=== PATIENT | female | born 1975 | race Hispanic/Latino ===

== ENCOUNTER 2023-12-31 21:51 | Inpatient (IN) | payer SELFPAY ==
[~2023-12-31] VITALS: Ht 157.5 cm; Wt 75.3 kg
[~2023-12-31 21:51] MED LIST: FIORIT PO; LEVO-70 PO; TOPI25TA42 PO
[2023-12-31 22:10] LABS: APPEARANCE,URINE CLEAR (CLEAR); BILIRUBIN,URINE NEGATIVE (NEGATIVE); COLOR,URINE LIGHT-YELLOW (YELLOW); GLUCOSE, URINE (UA) NEGATIVE (NEGATIVE); KETONES,URINE NEGATIVE (NEGATIVE); LEUKOCYTE ESTERASE ,URINE 500 Leu/uL (NEGATIVE); NITRATE,URINE NEGATIVE (NEGATIVE); OCCULT BLOOD,URINE SMALL (NEGATIVE); PH,URINE 5.5 (5.0-8.0); PROTEIN,URINE 20 mg/dL (NEGATIVE); UROBILINOGEN,URINE 0.2 mg/dL (0.2-1.0)
[2023-12-31 22:12] LABS: ADD UA MICROSCOPIC YES
[2023-12-31 22:15] LABS: BACTERIA,URINE RARE /HPF (None Seen); MUCUS,URINE RARE LPF (None Seen); SQUAMOUS EPITHELIAL CELL,UR RARE /HPF (0-2); WBC,URINE 51-100 /HPF (0-1)
[2023-12-31] MEDS: ketOROlac 30MG VIAL (30MG/ML) IVP ONE (22:20)
[2023-12-31] MEDS: 0.9%NACL 1000ML 2,340 ML IV ONE (22:20)
[2023-12-31] MEDS: ondanSETRON 4MG INJ IVP ONE (22:20)
[2023-12-31] MEDS: acetaMINOPHEN 500 MG TABLET PO ONE (22:21)
[2023-12-31] MEDS: CEFTRIAXONE 2GM VIAL IVPB ONE (22:21)
[2023-12-31] MEDS: morPHINE 4 MG SYG IVP ONE (22:21)
[2023-12-31 22:22] LABS: BASOPHILS # (AUTO) 0.05 K/uL (0.00-0.20); BASOPHILS % (AUTO) 0.4 % (0.0-5.0); EOSINOPHILS # (AUTO) 0.08 K/uL (0.00-0.70); EOSINOPHILS % (AUTO) 0.7 % (0.0-8.0); HEMATOCRIT 38.4 % (36-48); IMMATURE GRANULOCYTE ABSOLUTE 0.05 K/uL (0-1); LYMPHOCYTES # (AUTO) 1.9 K/uL (1.0-4.8); LYMPHOCYTES % (AUTO) 17.2 % (21.0-51.0); MEAN CORPUSCULAR HEMOGLOBIN 29.9 pg (27.0-33.0); MEAN CORPUSCULAR HGB CONC 33.9 g/dL (32.0-36.0); MEAN CORPUSCULAR VOLUME 88.3 fL (79-99); MONOCYTES # (AUTO) 0.9 K/uL (0.1-1.0); NEUTROPHILS # (AUTO) 8.2 K/uL (1.8-7.7); NEUTROPHILS % (AUTO) 73.3 % (40.0-77.0); PLATELET COUNT (AUTO) 295 K/uL (130-400); RED BLOOD CELL COUNT(AUTO) 4.35 MIL/uL (4.00-5.50); RED CELL DISTRIBUTION WIDTH 12.5 % (11.0-15.5); WHITE BLOOD COUNT (AUTO) 11.2 K/uL (4.8-10.8)
[2023-12-31 22:35] LABS: POTASSIUM 3.4 mmol/L (3.5-5.1)
[2023-12-31 22:40] LABS: ALBUMIN 3.3 g/dL (3.5-5.0); BILIRUBIN,DIRECT 0.1 mg/dL (0.0-0.3); BILIRUBIN,TOTAL 0.4 mg/dL (0.2-1.0); TOTAL PROTEIN, SERUM 7.5 g/dL (6.0-8.3)
[2024-01-01] VITALS (9 sets, daily range): BP systolic 118–150; BP diastolic 72–92; PULSE 73–115; RESP 16–20; TEMP 97.5–100.1; O2SAT 97–98
[2024-01-01] MEDS: PoTASSium BIcarbonate/CIT AC 25 MEQ TABLET.EFF PO ONE (00:34)
[2024-01-01] MEDS: morPHINE 4 MG SYG IVP ONE (00:34)
[2024-01-01] MEDS ORDERED: HYDROcodone/APAP 5/325 1 TAB TABLET PO PRN (01:00)
[2024-01-01] MEDS ORDERED: ondanSETRON 4MG INJ IVP PRN (01:00)
[2024-01-01] MEDS: LACTATED RINGERS 1000ML 1,000 ML IV SCH (01:06)
[2024-01-01] MEDS ORDERED: LOSA100T59 PO (02:48)
[2024-01-01] MEDS: morPHINE 2 MG SYG IVP PRN (05:14)
[2024-01-01] MEDS: ZOSYN 3.375GM+NS 50ML 50 ML IV SCH (05:14)
[2024-01-01 05:57] LABS: BASOPHILS # (AUTO) 0.04 K/uL (0.00-0.20); BASOPHILS % (AUTO) 0.5 % (0.0-5.0); EOSINOPHILS # (AUTO) 0.11 K/uL (0.00-0.70); EOSINOPHILS % (AUTO) 1.2 % (0.0-8.0); HEMATOCRIT 35.2 % (36-48); IMMATURE GRANULOCYTE ABSOLUTE 0.03 K/uL (0-1); LYMPHOCYTES # (AUTO) 2.2 K/uL (1.0-4.8); LYMPHOCYTES % (AUTO) 25.2 % (21.0-51.0); MEAN CORPUSCULAR HEMOGLOBIN 30.1 pg (27.0-33.0); MEAN CORPUSCULAR HGB CONC 33.5 g/dL (32.0-36.0); MEAN CORPUSCULAR VOLUME 89.8 fL (79-99); MONOCYTES # (AUTO) 0.9 K/uL (0.1-1.0); MONOCYTES % (AUTO) 9.7 % (3.0-13.0); NEUTROPHILS # (AUTO) 5.6 K/uL (1.8-7.7); NEUTROPHILS % (AUTO) 63.1 % (40.0-77.0); PLATELET COUNT (AUTO) 239 K/uL (130-400); RED BLOOD CELL COUNT(AUTO) 3.92 MIL/uL (4.00-5.50); RED CELL DISTRIBUTION WIDTH 12.6 % (11.0-15.5); WHITE BLOOD COUNT (AUTO) 8.9 K/uL (4.8-10.8)
[2024-01-01 06:18] LABS: CREATININE 0.8 mg/dL (0.5-1.0); MAGNESIUM 1.9 mg/dL (1.80-2.40)
[2024-01-01] MEDS: PHENAZOpyridine HCL 200 MG TAB 200 MG TABLET PO PRN (15:15)
[2024-01-01] MEDS: cefTRIAXone 1G VIAL IVPB SCH (15:15)
[2024-01-01] MEDS: ketOROlac 15MG/ML VIAL (15MG/ML) IV ONE (15:46)
[2024-01-01] MEDS: hydroMORPHone 1 MG INJ IVP ONE (23:26)
[2024-01-02] MEDS: acetaMINOPHEN 325 MG TAB PO PRN (03:07)
[2024-01-02 04:15] VITALS: BP 109/70; PULSE 87; RESP 18; TEMP 97.8
[2024-01-02 06:42] LABS: ALBUMIN 2.3 g/dL (3.5-5.0); BILIRUBIN,TOTAL 0.4 mg/dL (0.2-1.0); CREATININE 0.9 mg/dL (0.5-1.0); MAGNESIUM 1.8 mg/dL (1.80-2.40); POTASSIUM 3.8 mmol/L (3.5-5.1); TOTAL PROTEIN, SERUM 5.9 g/dL (6.0-8.3)
[2024-01-02 08:00] VITALS: BP 98/65; PULSE 75; RESP 16; TEMP 97.5; O2SAT 97
[2024-01-02 09:22] LABS: BASOPHILS # (AUTO) 0.04 K/uL (0.00-0.20); BASOPHILS % (AUTO) 0.6 % (0.0-5.0); EOSINOPHILS # (AUTO) 0.13 K/uL (0.00-0.70); EOSINOPHILS % (AUTO) 1.8 % (0.0-8.0); HEMATOCRIT 32.6 % (36-48); IMMATURE GRANULOCYTE ABSOLUTE 0.02 K/uL (0-1); LYMPHOCYTES # (AUTO) 2.1 K/uL (1.0-4.8); LYMPHOCYTES % (AUTO) 28.8 % (21.0-51.0); MEAN CORPUSCULAR HEMOGLOBIN 29.9 pg (27.0-33.0); MEAN CORPUSCULAR HGB CONC 32.5 g/dL (32.0-36.0); MEAN CORPUSCULAR VOLUME 92.1 fL (79-99); MONOCYTES # (AUTO) 0.5 K/uL (0.1-1.0); MONOCYTES % (AUTO) 7.5 % (3.0-13.0); NEUTROPHILS # (AUTO) 4.4 K/uL (1.8-7.7); PLATELET COUNT (AUTO) 227 K/uL (130-400); RED BLOOD CELL COUNT(AUTO) 3.54 MIL/uL (4.00-5.50); RED CELL DISTRIBUTION WIDTH 12.4 % (11.0-15.5); WHITE BLOOD COUNT (AUTO) 7.2 K/uL (4.8-10.8)
[2024-01-02 09:31] LABS: CREATININE 0.8 mg/dL (0.5-1.0); POTASSIUM 3.3 mmol/L (3.5-5.1)
[2024-01-02 12:00] VITALS: BP 115/64; PULSE 85; RESP 16; TEMP 97.5
[2024-01-02] MEDS: PoTASSium chloRIDE 20MEQ ER 20 MEQ ERTAB PO ONE (14:44)
[2024-01-02 16:00] VITALS: BP 143/77; PULSE 88; RESP 16; TEMP 97.8
[2024-01-02] MEDS ORDERED: PoTASSium chl 10% ELIXIR 20MEQ 20 MEQ/15 ML UDCUP PO PRN (18:30)
[2024-01-02] MEDS ORDERED: PoTASSium chloRIDE 20MEQ/100ML 100 ML IV PRN (18:30)
[2024-01-02] MEDS: ketOROlac 15MG/ML VIAL (15MG/ML) IV PRN (18:50)
[2024-01-02] MEDS: PoTASSium chloRIDE 20MEQ ER 20 MEQ ERTAB PO PRN (18:51)
[2024-01-02 20:00] VITALS: BP 136/73; PULSE 110; RESP 20; TEMP 99
[2024-01-02] MEDS: MAGNESIUM 2GM PREMIX 50ML 50 ML IV PRN (20:17)
[2024-01-02 20:20] VITALS: O2SAT 100
[2024-01-02] MEDS ORDERED: ketOROlac 15MG/ML VIAL (15MG/ML) IV PRN (22:00)
[2024-01-03] VITALS (8 sets, daily range): BP systolic 114–140; BP diastolic 68–85; PULSE 75–96; RESP 16–20; TEMP 97.6–98.3; O2SAT 99–100
[2024-01-03 05:27] LABS: BASOPHILS # (AUTO) 0.05 K/uL (0.00-0.20); BASOPHILS % (AUTO) 0.6 % (0.0-5.0); EOSINOPHILS # (AUTO) 0.15 K/uL (0.00-0.70); EOSINOPHILS % (AUTO) 1.8 % (0.0-8.0); HEMATOCRIT 33.9 % (36-48); IMMATURE GRANULOCYTE ABSOLUTE 0.02 K/uL (0-1); LYMPHOCYTES # (AUTO) 2.4 K/uL (1.0-4.8); LYMPHOCYTES % (AUTO) 29.2 % (21.0-51.0); MEAN CORPUSCULAR HEMOGLOBIN 29.7 pg (27.0-33.0); MEAN CORPUSCULAR HGB CONC 33.3 g/dL (32.0-36.0); MEAN CORPUSCULAR VOLUME 89.2 fL (79-99); MONOCYTES # (AUTO) 0.7 K/uL (0.1-1.0); MONOCYTES % (AUTO) 8.6 % (3.0-13.0); NEUTROPHILS # (AUTO) 4.8 K/uL (1.8-7.7); NEUTROPHILS % (AUTO) 59.6 % (40.0-77.0); PLATELET COUNT (AUTO) 303 K/uL (130-400); RED CELL DISTRIBUTION WIDTH 12.2 % (11.0-15.5); WHITE BLOOD COUNT (AUTO) 8.1 K/uL (4.8-10.8)
[2024-01-03 05:44] LABS: ALBUMIN 2.5 g/dL (3.5-5.0); BILIRUBIN,TOTAL 0.2 mg/dL (0.2-1.0); CREATININE 0.9 mg/dL (0.5-1.0); POTASSIUM 4.6 mmol/L (3.5-5.1); TOTAL PROTEIN, SERUM 6.4 g/dL (6.0-8.3)
[2024-01-03] MEDS: PHENAZOpyridine HCL 200 MG TAB 200 MG TABLET PO SCH (11:26)
[2024-01-03] MEDS: acetaMINOPHEN WITH coDEINE 1 TAB TAB PO PRN (15:38)
[2024-01-04] VITALS: BP 146/96; PULSE 79; RESP 16; TEMP 98
[2024-01-04 04:00] VITALS: BP 134/84; PULSE 83; RESP 16; TEMP 97.5
[2024-01-04 08:00] VITALS: O2SAT 99
[2024-01-04 08:09] VITALS: BP 123/73; PULSE 80; RESP 18; TEMP 98.7
[2024-01-04 12:04] VITALS: BP 126/82; PULSE 85; RESP 18; TEMP 97.9
[2024-01-04] MEDS ORDERED: CEFD300C3 PO (12:05)
[2024-01-04] MEDS ORDERED: PHEN-776 PO (12:05)
[2024-01-04] MEDS ORDERED: ACET-2079 PO (12:05)
== END 2024-01-04 12:56 | disposition home or self-care (01) | DRG 872 ==
LOC: EDH 21:51 → EDHIP 21:52 → 3AH 01-01 01:02
PROVIDERS: ADMIT Hospitalist; ATTEND Hospitalist
DX: A41.9 Sepsis, unspecified organism (principal); N10 Acute pyelonephritis; E87.6 Hypokalemia; I10 Essential (primary) hypertension; R31.9 Hematuria, unspecified; B96.20 Unspecified Escherichia coli [E. coli] as the cause of diseases classified elsewhere; Z82.49 Family history of ischemic heart disease and other diseases of the circulatory system; Z83.3 Family history of diabetes mellitus; Z87.440 Personal history of urinary (tract) infections; Z87.442 Personal history of urinary calculi; Z90.710 Acquired absence of both cervix and uterus
CPT/HCPCS: 36415; 74176; 76770; 80048; 80053; 80076; 81001; 83605; 83735; 84145; 84484; 85025; 86140; 87040; 87086; 87186; 93005; 96375; 96376; G0378; J0696; J1171; J1885; J2270; J2405; J2543; J3475; J7030; J7120